=== PATIENT | female | born 2000 | race Caucasian/White ===

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

== ENCOUNTER 2020-04-30 20:42 | Observation (INO) | payer BC, OTHER ==
[2020-04-30] MEDS ORDERED: diphenhydrAMINE 50 MG/ML 1 ML VIAL IVP STA (21:19)
[2020-04-30] MEDS ORDERED: SODIUM CHLORIDE 0.9% 1,000 ML IV STA ×2 (21:19)
[2020-04-30] MEDS ORDERED: methylPREDNISolone SOD SUCCI 125 MG/2 ML VIAL IV STA (21:19)
[2020-04-30] MEDS ORDERED: FAMOTIDINE 20 MG/2 ML VIAL IV STA (21:25)
[2020-04-30] MEDS ORDERED: KETOROLAC 30 MG/ML 1 ML VIAL IVP STA (21:25)
[2020-04-30 21:39] LABS: Basophils % (A) 0 %; Eosinophils # (A) 0.5 k/uL (0-0.7); Eosinophils % (A) 3 %; HCT 43.9 % (34.0-46.0); HGB 15.1 gm/dL (11.4-16.0); Lymphocytes # (A) 4.9 k/uL (1.0-4.8); Lymphocytes % (A) 23 %; MCH 28.3 pg (25.0-35.0); MCHC 34.5 g/dL (31.0-37.0); MCV 82.1 fL (80.0-100.0); Mean Platelet Volume 6.4; Monocytes # (A) 1.3 k/uL (0-1.0); Monocytes % (A) 6 %; Neutrophils # (A) 13.8 k/uL (1.3-7.7); Neutrophils % (A) 66 %; Platelet Count 383 k/uL (150-450); RBC 5.35 m/uL (3.80-5.40); RDW 12.3 % (11.5-15.5); WBC 20.8 k/uL (4.0-11.0)
[2020-04-30 21:51] LABS: African American GFR (CKD) >90 (>60 ml/min/1.73 sqM); Anion Gap 11 mmol/L; Blood Urea Nitrogen 12 mg/dL (7-17); Calcium 9.8 mg/dL (8.4-10.2); Carbon Dioxide 22 mmol/L (22-30); Chloride 102 mmol/L (98-107); Glucose 101 mg/dL (74-99); Non-African American GFR(CKD) >90 (>60 ml/min/1.73 sqM); Potassium 3.8 mmol/L (3.5-5.1); Sodium 135 mmol/L (137-145)
[2020-04-30] MEDS ORDERED: ONDANSETRON 4 MG/2 ML VIAL IVP STA (21:51)
[2020-04-30] MEDS ORDERED: SODIUM CHLORIDE 0.9% 1,000 ML IV ONE (21:53)
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
[2020-04-30] MEDS ORDERED: ACETAMINOPHEN TAB 325 MG TAB PO PRN (22:55)
[2020-04-30] MEDS ORDERED: NALOXONE 0.4 MG/ML 1 ML VIAL IV PRN (22:55)
[2020-04-30] MEDS ORDERED: IBUPROFEN 400 MG TAB PO PRN (22:55)
[2020-04-30] MEDS ORDERED: ONDANSETRON 4 MG/2 ML VIAL IVP PRN (22:55)
[2020-04-30] MEDS ORDERED: methylPREDNISolone SOD SUCCI 125 MG/2 ML VIAL IV SCH (23:00)
[2020-04-30] MEDS ORDERED: diphenhydrAMINE 50 MG/ML 1 ML VIAL IVP SCH (23:00)
[2020-05-01 02:49] LABS: Appearance,Urine Turbid (Clear); Bilirubin,Urine Negative (Negative); Blood,Urine Small (Negative); Color,Urine Yellow; Glucose,Urine (UA) Negative (Negative); Ketones,Urine Negative (Negative); Leukocyte Esterase,Urine Negative (Negative); Mucus,Urine Occasional /hpf; Nitrite,Urine Negative (Negative); PH, Urine 5.5 (5.0-8.0); Protein,Urine Negative (Negative); RBC,Urine 1 /hpf (0-5); Specific Gravity,Urine 1.024 (1.001-1.035); Squamous Epithelial Cell,Urine 2 /hpf (0-4); Urobilinogen,Urine <2.0 mg/dL (<2.0); WBC,Urine 4 /hpf (0-5)
[2020-05-01] MEDS: methylPREDNISolone SOD SUCCI 125 MG/2 ML VIAL IV SCH ×4 (04:29→21:03)
[2020-05-01] MEDS: diphenhydrAMINE 50 MG/ML 1 ML VIAL IVP SCH ×4 (04:30→21:03)
[2020-05-01 08:01] LABS: Basophils % (A) 0 %; Eosinophils # (A) 0.1 k/uL (0-0.7); Eosinophils % (A) 1 %; HCT 40.7 % (34.0-46.0); HGB 13.2 gm/dL (11.4-16.0); Lymphocytes # (A) 1.9 k/uL (1.0-4.8); Lymphocytes % (A) 15 %; MCH 27.5 pg (25.0-35.0); MCHC 32.5 g/dL (31.0-37.0); MCV 84.4 fL (80.0-100.0); Mean Platelet Volume 7.6; Monocytes # (A) 0.3 k/uL (0-1.0); Monocytes % (A) 2 %; Neutrophils # (A) 10.2 k/uL (1.3-7.7); Neutrophils % (A) 81 %; Platelet Count 318 k/uL (150-450); RBC 4.82 m/uL (3.80-5.40); RDW 12.6 % (11.5-15.5); WBC 12.5 k/uL (4.0-11.0)
[2020-05-01 08:03] LABS: African American GFR (CKD) >90 (>60 ml/min/1.73 sqM); Anion Gap 7 mmol/L; Blood Urea Nitrogen 11 mg/dL (7-17); Calcium 8.9 mg/dL (8.4-10.2); Carbon Dioxide 20 mmol/L (22-30); Chloride 110 mmol/L (98-107); Glucose 191 mg/dL (74-99); Non-African American GFR(CKD) >90 (>60 ml/min/1.73 sqM); Potassium 4.5 mmol/L (3.5-5.1); Sodium 137 mmol/L (137-145)
[2020-05-01] MEDS: KETOROLAC 30 MG/ML 1 ML VIAL IVP PRN (08:43)
[2020-05-01] MEDS ORDERED: PANTOPRAZOLE 40 MG/10 ML VIAL IV SCH (09:00)
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
[2020-05-01] MEDS: lamoTRIgine 25 MG TAB PO SCH ×2 (15:30→21:03)
[2020-05-01] MEDS: traZODone HCL 50 MG TAB PO SCH (21:03)
--- NOTE | 2020-05-02 00:35 | P.HPIM ---
History of Present Illness H&P Date: 05/01/20 Chief Complaint: Allergic reaction Patient is a 20-year-old female with known history of asthma, ADD/ADHD and currently everyday smoker and also vapes presents to ER with complaints of severe scalp swelling, irritation and redness after dying her hair. Patient states that she had a reaction to [place] which she is using for the second time. Patient states that the reaction was worse than previous. Patient is also having significant of the forehead face and eyes and scalp present. Of the forehead and face and ice as well. Patient is also outside in the hot weather with his son and has sunburn over her back from yesterday. Patient was seen at PCPs office and topical cream was given. Patient's symptoms are not improving which made her come to ER. Patient was also having suicidal ideations and psychiatry was consulted. Patient is being continued on bedside sitter. Laboratory data showed WBC 20.8, hemoglobin 15.1 and platelets 383 Sodium 135, potassium 3.8, BUN 12 and creatinine 0.66 UA negative for infection Review of Systems Constitutional: Patient denies any fever or chills . No generalized weakness or weight loss. Abdomen: Patient denied nausea vomiting and diarrhea and abdominal pain. Cardiovascular: Patient denies any chest pain or short of breath no palpitations. Respiratory: patient denied any cough is from production. No shortness of breath Neurologic: Patient denied any numbness or tingling headache. Musculoskeletal: Patient denies any complaints of joint swelling or deformity. Skin: Allergic reaction. Swelling of the scalp and face. Psychiatric: Negative Endocrine: No heat or cold intolerance. No recent weight gain. Genitourinary: No dysuria or hematuria. All other 14 point ROS negative except the above Past Medical History Past Medical History: Asthma Additional Past Medical History / Comment(s): ADHD History of Any Multi-Drug Resistant Organisms: None Reported Past Surgical History: No Surgical Hx Reported Past Anesthesia/Blood Transfusion Reactions: No Reported Reaction Additional Past Anesthesia/Blood Transfusion Reaction / Comment(s): patient has never had a blood infusion or anesthesia. Past Psychological History: ADD/ADHD Smoking Status: Current every day smoker Past Alcohol Use History: None Reported Additional Past Alcohol Use History / Comment(s): smokes a pack of cigarettes a day and vapes. Past Drug Use History: None Reported - Past Family History Mother Family Medical History: Unable to Obtain Father Family Medical History: Unable to Obtain Medications and Allergies Home Medications Medication Instructions Recorded Confirmed Type predniSONE See Taper PO DIRECTED 05/01/20 05/01/20 History Allergies Allergy/AdvReac Type Severity Reaction Status Date / Time pneumococcal vaccine Allergy Anaphylaxis Verified 04/30/20 22:38 clobetasol AdvReac Solution Verified 04/30/20 22:38 burned patients scalp Physical Exam Vitals: Vital Signs Temp Pulse Pulse Resp BP BP Pulse Ox 05/01/20 07:00 98.2 F 82 18 143/80 96 05/01/20 03:53 16 04/30/20 23:54 98.2 F 87 18 126/71 96 04/30/20 23:06 100 04/30/20 21:44 111 H 16 125/73 100 04/30/20 20:46 99.6 F 119 H 22 135/65 99 Intake and Output 04/30/20 05/01/20 05/01/20 22:59 06:59 14:59 Other: # Voids 1 Weight 90.718 kg 94.2 kg PHYSICAL EXAMINATION: Patient is lying in the bed comfortably, no acute distress, awake alert and oriented.. HEENT: Normocephalic. Neck is supple. Pupils reactive. Nostrils clear. Oral cavity is moist. Ears reveal no drainage. Neck reveals no JVD, carotid bruits, or thyromegaly. CHEST EXAMINATION: Trachea is central. Symmetrical expansion. Lung correia clear to auscultation and percussion. CARDIAC: Normal S1, S2 with no gallops. No murmurs ABDOMEN: Soft. Bowel sounds normal. No organomegaly. No abdominal bruits. Extremities: reveal no edema. No clubbing or cyanosis Neurologically awake, alert, oriented x3 with well-coordinated movements. No focal deficits noted Skin:Patient does have swelling of the forehead, scalp region and also cheeks. Minimal redness. Nontender. Psychiatric: Coperative. Nonsuicidal Musculoskeletal: No joint swelling or deformity. Normal range of motion. Results CBC & Chem 7: 05/01/20 07:15 05/01/20 07:15 Labs: Abnormal Lab Results - Last 24 Hours (Table) 04/30/20 04/30/20 05/01/20 Range/Units 21:20 21:20 02:00 WBC 20.8 H (4.0-11.0) k/uL Neutrophils # 13.8 H (1.3-7.7) k/uL Lymphocytes # 4.9 H (1.0-4.8) k/uL Monocytes # 1.3 H (0-1.0) k/uL Sodium 135 L (137-145) mmol/L Chloride (98-107) mmol/L Carbon Dioxide (22-30) mmol/L Glucose 101 H (74-99) mg/dL Urine Appearance Turbid H (Clear) Urine Blood Small H (Negative) Urine Mucus Occasional H (None) /hpf 05/01/20 05/01/20 Range/Units 07:15 07:15 WBC 12.5 H (4.0-11.0) k/uL Neutrophils # 10.2 H (1.3-7.7) k/uL Lymphocytes # (1.0-4.8) k/uL Monocytes # (0-1.0) k/uL Sodium (137-145) mmol/L Chloride 110 H (98-107) mmol/L Carbon Dioxide 20 L (22-30) mmol/L Glucose 191 H (74-99) mg/dL Urine Appearance (Clear) Urine Blood (Negative) Urine Mucus (None) /hpf Thrombosis Risk Factor Assmnt - DVT/VTE Prophylaxis DVT/VTE Prophylaxis: Pharmacologic Prophylaxis ordered - Choose All That Apply Any of the Below Risk Factors Present?: Yes Each Factor Represents 1 point: Obesity (BMI >25) Other Risk Factors: No Other congenital or acquired thrombophilia - If yes, enter type in comment: No Thrombosis Risk Factor Assessment Total Risk Factor Score: 1 Thrombosis Risk Factor Assessment Level: Low Risk Assessment and Plan Assessment: Acute allergic reaction with hair dye with swelling on the scalp, forehead and face. Leukocytosis likely reactive ADD/ADHD History of asthma not in exacerbation Current everyday smoker History of vaping on a daily basis Morbid obesity with a BMI 40.6 Plan: Patient will be continued on methylprednisolone 60 mg every 6 hourly. Continue with Benadryl for itching and Pepcid continue to follow closely. Psychiatry was consulted due to suicidal ideation. Continue bedside sitter. Discussed with the patient and her family at bedside. Further recommendations based on the clinical course. Time with Patient: Greater than 30
[2020-05-02] MEDS: methylPREDNISolone SOD SUCCI 125 MG/2 ML VIAL IV SCH ×4 (04:21→21:45)
[2020-05-02] MEDS: diphenhydrAMINE 50 MG/ML 1 ML VIAL IVP SCH ×4 (04:21→21:45)
[2020-05-02] MEDS: FAMOTIDINE 20 MG TAB PO SCH ×2 (08:14→21:44)
[2020-05-02] MEDS: lamoTRIgine 25 MG TAB PO SCH ×2 (08:15→21:44)
--- NOTE | 2020-05-02 13:08 | P.PN ---
Progress Note - Text Progress Note Date: 05/02/20 Interval History: Patient was seen today for psychiatric follow-up on the medical floors for willi mckeon's mood and suicidal thoughts. Patient was started on Lamictal and trazodone yesterday. Patient continued to have a one-to-one sitter at her side in her room. Patient just finished finish brushing her teeth today and was appearing to be less edematous in her face and appeared to have a brighter affect. She claims that she is feeling better since yesterday and claims that she feels her mood has been improving. She denies any depression today and claims that she feels less angry and irritable. She denied any rashes or side effects from medications. She states that she was able to sleep well last night. She claims that she has a fair appetite. At this time patient denies any suicidal or homical ideations, intent or plan. Patient denies any auditory, visual hallucinations and denies any paranoia or delusions. Mental Status Exam: General Appearance: Patient appears to be stated age is alert, directable and is more cooperative. Patient appears to have fair hygiene and grooming wearing hospital gown with fair eye contact. Behavior: Patient is sitting in bed without any agitated behavior. Speech: Patient's speech is fluent and nonpressured. Mood/Affect: Patient reports their mood is "better", affect is congruent Suicidality/Homicidality: Patient denies having any suicidal or homicidal ideation intent or plan. Perceptions: Patient denies any visual hallucinations and denies any auditory hallucinations Though content/process: There is no evidence of any delusional thought content and thought process is linear and goal-directed. More future oriented. Memory and concentration: AOX3, grossly intact for the purposes of this session. Judgment and insight: Limited, improving Assessment Mood disorder unspecified, rule out bipolar disorder Cluster B traits Nicotine dependence Plan: -At this time patient DOES NOT meet criteria for inpatient psychiatric admission. -Would recommend the following medication changes/additions: Continue with Lamictal 25 mg twice a day for mood stabilization/depression, this dose of Lamictal can be titrated up in 1-2 weeks when patient follows up with her outpatient provider. Patient denies any rash or any side effects from his medication. Continue with trazodone 50 mg daily at bedtime for insomnia/mood. -Discontinued one-to-one sitter. -Spoke about this plan with patient's mother, patient and nurse and all agree and are on board. Veneer Sander answered questions from both patient and patient's mother today at the bedside. -Patient's mother will be getting patient into [facility] for psychiatric follow-up upon discharge within 1-2 weeks. -Will sign off at this time -Please contact with any questions.
--- NOTE | 2020-05-02 15:18 | P.PN ---
Subjective Progress Note Date: 05/02/20 Principal diagnosis: Patient is a 20-year-old female with known history of asthma, ADD/ADHD and currently everyday smoker and also vapes presents to ER with complaints of severe scalp swelling, irritation and redness after dying her hair. Patient states that she had a reaction to [place] which she is using for the second time. Patient states that the reaction was worse than previous. Patient is also having significant of the forehead face and eyes and scalp present. Of the forehead and face and ice as well. Patient is also outside in the hot weather with his son and has sunburn over her back from yesterday. Patient was seen at PCPs office and topical cream was given. Patient's symptoms are not improving which made her come to ER. Patient was also having suicidal ideations and psychiatry was consulted. Patient is being continued on bedside sitter. Laboratory data showed WBC 20.8, hemoglobin 15.1 and platelets 383 Sodium 135, potassium 3.8, BUN 12 and creatinine 0.66 UA negative for infection 05/02/2020 Patient is seen and evaluated and follow-up and continues to be edematous in the face although is showing some slight improvement and is able to see out of both eyes. Patient states she continues to have difficulty in fully seeing but is slightly improved from yesterday. Patient is maintained on steroids along with toradol and Benadryl. Patient is currently eating with no difficulties in swallowing and patient denies any nausea or vomiting. Patient denies any chest pain, shortness of breath, or palpitations. Patient denies any suicidal ideati on or thoughts of wanting to harm herself or others. Patient was seen and reevaluated by psychiatry recommending continue with mood stabilizers and outpatient follow-up. 1-1 suicide sitter has been discontinued. Currently mother is at the bedside. Patient continues to have some scalp tenderness all the redness has resolved. Will continue to monitor closely. Objective - Vital Signs Vital signs: Vital Signs Temp 97.9 F 05/02/20 07:00 Pulse 87 05/02/20 07:00 Resp 16 05/02/20 07:00 BP 133/67 05/02/20 07:00 Pulse Ox 98 05/02/20 07:00 Intake & Output 05/01/20 05/02/20 05/02/20 18:59 06:59 18:59 Intake Total 100 Balance 100 Intake: Oral 100 Other: Voiding Method Toilet Toilet # Voids 3 1 - Exam Patient is sitting up in the bed comfortably, no acute distress, awake alert and oriented.. Currently eating lunch. HEENT: Normocephalic. Neck is supple. Pupils reactive. Nostrils clear. Oral cavity is moist. Ears reveal no drainage. Neck reveals no JVD, carotid bruits, or thyromegaly. CHEST EXAMINATION: Trachea is central. Symmetrical expansion. Lung correia clear to auscultation and percussion. CARDIAC: Normal S1, S2 with no gallops. No murmurs ABDOMEN: Soft. Bowel sounds normal. No organomegaly. No abdominal bruits. Extremities: reveal no edema. No clubbing or cyanosis Neurologically awake, alert, oriented x3 with well-coordinated movements. No focal deficits noted Skin:Patient does have swelling of the forehead, scalp region and also cheeks. Minimal redness. Nontender. Redness has resolved and patient continues to have some swelling of the forehead and scalp although slight improvement in patient is able to see out of both eyes Psychiatric: Cooperative. Non-suicidal Musculoskeletal: No joint swelling or deformity. Normal range of motion. - Labs CBC & Chem 7: 05/01/20 07:15 05/01/20 07:15 Assessment and Plan Assessment: Acute allergic reaction with hair dye with swelling on the scalp, forehead and face. Leukocytosis likely reactive, improving ADD/ADHD History of asthma not in exacerbation Current everyday smoker History of vaping on a daily basis Morbid obesity with a BMI 40.6 Plan: Patient will be continued on methylprednisolone 60 mg every 6 hourly. Continue with Benadryl for itching and Pepcid continue to follow closely. Psychiatry following and reevaluated the patient recommending continued outpatient follow- up with and counseling and mood stabilizers. Suicide sitter has been discontinued.. Discussed with the patient and her family at bedside. Further recommendations based on the clinical course. We will continue to monitor and observe closely overnight with anticipation of possible discharge in 24 hours.
[2020-05-02] MEDS: KETOROLAC 30 MG/ML 1 ML VIAL IVP PRN (15:20)
[2020-05-02] MEDS: traZODone HCL 50 MG TAB PO SCH (21:44)
[2020-05-03 01:31] VITALS: RESP 18
[2020-05-03] MEDS: diphenhydrAMINE 50 MG/ML 1 ML VIAL IVP SCH ×2 (04:22→08:07)
[2020-05-03] MEDS: methylPREDNISolone SOD SUCCI 125 MG/2 ML VIAL IV SCH ×2 (04:22→08:07)
[2020-05-03] MEDS: lamoTRIgine 25 MG TAB PO SCH (08:08)
[2020-05-03] MEDS: FAMOTIDINE 20 MG TAB PO SCH (08:08)
[2020-05-03 08:14] VITALS: BP 111/65; PULSE 86; TEMP 98.1
--- NOTE | 2020-05-03 12:47 | P.DS ---
Providers Date of admission: 04/30/20 22:25 Expected date of discharge: 05/03/20 Attending physician: Yusuf Buchanan Consults: 05/01/20 00:35 Consult Physician ONCE Consulting Provider: Wilmer Strange Consult Reason/Comments: suicidal thoughts. Do you want consulting provider notified?: Yes, Notify in am [facility] Course: Final diagnosis Acute allergic reaction with hair dye with swelling on the scalp, forehead and face. Leukocytosis likely reactive, improved ADD/ADHD Possible mood disorder, unspecified, rule out bipolar disorder History of asthma not in exacerbation Current everyday smoker History of vaping on a daily basis Morbid obesity with a BMI 40.6 Discharge disposition Patient is being discharged in a stable condition with guarded prognosis to home. Patient will follow-up with Dr. Thakur upon discharge. Patient also instructed to follow-up with the counseling center upon discharge. Patient will continue on prednisone taper that was prescribed prior to admission along with Benadryl and Motrin. Patient will also continue on Lamictal along with trazodone as prescribed by psychiatry. Total time taken is 35 minutes. History of present illness This is an 20-year-old female who was recently admitted with ALLERGIC reaction to hair dye with severe scalp swelling, irritation, and redness and was being closely monitored. Patient was also found to have significant for head facial and eye swelling. Patient was initiated on IV steroids along with Benadryl, Toradol, and Motrin and has improved. Erythema is resolved and patient continues to have some mild scalp and forehead swelling but has improved as well. Will continue on prednisone taper as prescribed to her by dermatology that she never started the day of admission. Patient will also continue with Benadryl and Motrin. Patient instructed to avoid hair dye and also to continue avoiding prolonged exposure to the sun as she was also out in the sun for a long period prior to being admitted. Patient instructed to wear sunscreen as well. Patient also instructed to discontinue smoking and vaping. During hospitalization patient had mentioned thoughts of suicide and was evaluated by psychiatry. She was initiated on Lamictal along with trazodone and will continue in the outpatient setting. Patient's mother has made arrangements to follow-up with counseling services in the outpatient setting. Patient currently denies any suicidal thoughts or thoughts of wanting to harm herself or others. Currently no reports of chest pain, shortness of breath, or palpitations. Patient is afebrile. No reports of nausea or vomiting and patient is tolerating diet. Guarded prognosis. On exam vital signs are stable. Temp is 98.1F, pulse is 86, respirations are 18, blood pressure is 111/65, oxygen saturation is 94-98 % on room air. Cardio S1, S2 are muffled. Respiratory shows clear to auscultation. Abdomen is soft and nontender. Nervous system shows no focal deficits. Please refer to medication reconciliation sheet for a list of medications. Patient Condition at Discharge: Stable Plan - Discharge Summary Discharge Rx Participant: Yes New Discharge Prescriptions: New diphenhydrAMINE [Benadryl] 25 mg PO TID PRN 10 Days #30 capsule PRN Reason: Allergic Reaction traZODone HCL [Desyrel] 50 mg PO HS 30 Days #30 tab lamoTRIgine [LaMICtal] 25 mg PO BID 30 Days #60 tab Ibuprofen [Motrin] 400 mg PO Q6HR PRN #30 tab PRN Reason: Mild Pain Or Fever > 100.5 Famotidine [Pepcid] 20 mg PO BID 15 Days #30 tab Continue predniSONE See Taper PO DIRECTED Discharge Medication List predniSONE See Taper PO DIRECTED 05/01/20 [History] Famotidine [Pepcid] 20 mg PO BID 15 Days #30 tab 05/03/20 [Rx] Ibuprofen [Motrin] 400 mg PO Q6HR PRN #30 tab 05/03/20 [Rx] diphenhydrAMINE [Benadryl] 25 mg PO TID PRN 10 Days #30 capsule 05/03/20 [Rx] lamoTRIgine [LaMICtal] 25 mg PO BID 30 Days #60 tab 05/03/20 [Rx] traZODone HCL [Desyrel] 50 mg PO HS 30 Days #30 tab 05/03/20 [Rx] Follow up Appointment(s)/Referral(s): Dariel Thakur MD [Primary Care Provider] - 1-2 days Activity/Diet/Wound Care/Special Instructions: Activity Limited until follow-up Continue taking prednisone taper that was given to you prior to admission Avoid hair dyes Avoid prolonged exposure to the sun and wear sunscreen Continue to avoid smoking and vaping Follow-up with counseling in the outpatient setting Continue current diet Encourage fluids and rest Discharge Disposition: HOME SELF-CARE
== END 2020-05-03 14:53 | disposition home or self-care (01) ==
LOC: EC 20:42 → 6PED 22:25 → 4SSUR 05-01 02:35
PROVIDERS: ADMIT Hospitalist; ATTEND Hospitalist
DX: T65.6X1A Toxic effect of paints and dyes, not elsewhere classified, accidental (unintentional), initial encounter (principal); L23.4 Allergic contact dermatitis due to dyes; R51 Headache; R60.0 Localized edema; D72.829 Elevated white blood cell count, unspecified; L55.9 Sunburn, unspecified; F90.9 Attention-deficit hyperactivity disorder, unspecified type; F32.9 Major depressive disorder, single episode, unspecified; J45.909 Unspecified asthma, uncomplicated; F17.210 Nicotine dependence, cigarettes, uncomplicated; F17.290 Nicotine dependence, other tobacco product, uncomplicated; Z68.41 Body mass index [BMI] 40.0-44.9, adult; E66.01 Morbid (severe) obesity due to excess calories; R45.851 Suicidal ideations; Z91.5 Personal history of self-harm; Z56.0 Unemployment, unspecified; G47.00 Insomnia, unspecified; Z88.7 Allergy status to serum and vaccine; Z88.8 Allergy status to other drugs, medicaments and biological substances; Z81.8 Family history of other mental and behavioral disorders; R11.0 Nausea; Z11.59 Encounter for screening for other viral diseases
CPT/HCPCS: 96376 ×3; 96375 ×2; 96361; 96374; 99285; 36415; 80048 ×2; 85025 ×2; 81001; 81025; G0378 ×5; U0003; J1200 ×4; J2930 ×4; J2405; J1885 ×3; C9113

== ENCOUNTER 2021-05-03 02:03 | Emergency (ER) | payer OTHER ==
[2021-05-03 02:08] VITALS: BP 135/88; PULSE 91; RESP 20; TEMP 98.8
[2021-05-03] MEDS ORDERED: methylPREDNISolone SOD SUCCI 125 MG/2 ML VIAL IM ONE (02:31)
[2021-05-03] MEDS ORDERED: diphenhydrAMINE 50 MG/ML 1 ML VIAL IM STA (02:31)
[2021-05-03] MEDS ORDERED: CEPHALEXIN 500MG STARTER PACK 4 CAP BTL PO STA (02:31)
[2021-05-03] MEDS ORDERED: FAMOTIDINE 20 MG TAB PO STA (02:31)
--- NOTE | 2021-05-03 02:37 | ED ---
General Adult HPI - General Chief complaint: Skin/Abscess/Foreign Body Stated complaint: Scalp irritation Time Seen by Provider: 05/03/21 02:14 Source: patient, family Mode of arrival: ambulatory Limitations: no limitations - History of Present Illness Initial comments: 21 year-old female patient presents to the emergency department for evaluation of rash to the scalp. Patient had her hair dyed at the salon yesterday. States she has known sensitivity to hair dye. States that she started having itching and irritation last night. Symptoms worsened throughout the day. States that she feels like her face is swelling. Denies taking any medication for her symptoms. Denies any wheezing. States she feels like she is having some mild shortness of breath. Denies rash to any other areas of her body. Denies fever or chills. Eating and drinking without difficulty. Denies chance of . - Related Data Home Medications Medication Instructions Recorded Confirmed predniSONE See Taper PO DIRECTED 05/01/20 05/01/20 Previous Rx's Medication Instructions Recorded Famotidine [Pepcid] 20 mg PO BID 15 Days #30 tab 05/03/20 Ibuprofen [Motrin] 400 mg PO Q6HR PRN #30 tab 05/03/20 diphenhydrAMINE [Benadryl] 25 mg PO TID PRN 10 Days #30 05/03/20 capsule lamoTRIgine [LaMICtal] 25 mg PO BID 30 Days #60 tab 05/03/20 traZODone HCL [Desyrel] 50 mg PO HS 30 Days #30 tab 05/03/20 Cephalexin [Keflex] 500 mg PO Q6H #28 cap 05/03/21 Famotidine [Pepcid] 20 mg PO DAILY #5 tablet 05/03/21 hydrOXYzine HCL [Atarax] 25 mg PO QID PRN #20 tab 05/03/21 predniSONE 50 mg PO DAILY #5 tablet 05/03/21 Allergies Allergy/AdvReac Type Severity Reaction Status Date / Time pneumococcal vaccine Allergy Anaphylaxis Verified 05/03/21 02:09 clobetasol AdvReac Solution Verified 05/03/21 02:09 burned patients scalp Review of Systems ROS Statement: Those systems with pertinent positive or pertinent negative responses have been documented in the HPI. ROS Other: All systems not noted in ROS Statement are negative. Past Medical History Past Medical History: Asthma Additional Past Medical History / Comment(s): ADHD History of Any Multi-Drug Resistant Organisms: None Reported Past Surgical History: No Surgical Hx Reported Past Anesthesia/Blood Transfusion Reactions: No Reported Reaction Additional Past Anesthesia/Blood Transfusion Reaction / Comment(s): patient has never had a blood infusion or anesthesia. Past Psychological History: ADD/ADHD, Anxiety Smoking Status: Current every day smoker Past Alcohol Use History: None Reported Past Drug Use History: None Reported - Past Family History Mother Family Medical History: Unable to Obtain Father Family Medical History: Unable to Obtain General Exam Limitations: no limitations General appearance: alert, in no apparent distress, other (Physical well- developed, well-nourished adult female patient in no acute distress. Vital signs upon presentation are temperature 98.8F, pulse 91, respirations 20, blood pressure 135/88, pulse ox 97% on room air.) Head exam: Present: other (There is erythema and swelling to the entirety of the scalp. Some weeping areas.) Eye exam: Present: normal appearance, PERRL, EOMI. Absent: scleral icterus, conjunctival injection, periorbital swelling ENT exam: Present: normal exam, normal oropharynx, mucous membranes moist Respiratory exam: Present: normal lung sounds bilaterally. Absent: respiratory distress, wheezes, rales, rhonchi, stridor Cardiovascular Exam: Present: regular rate, normal rhythm, normal heart sounds. Absent: systolic murmur, diastolic murmur, rubs, gallop, clicks Neurological exam: Present: alert, oriented X3, CN II-XII intact Psychiatric exam: Present: normal affect, normal mood Skin exam: Present: warm, dry, intact, normal color. Absent: rash Course Vital Signs 05/03/21 02:03 Temperature 98.8 F Pulse Rate 91 Respiratory 20 Rate Blood Pressure 135/88 O2 Sat by Pulse 97 Oximetry Medical Decision Making - Medical Decision Making 21-year-old female patient presents for evaluation of rash to her scalp. Physical examination did reveal erythema and swelling to the scalp. Some weeping areas small vesicles consistent with contact dermatitis. Patient will be started on steroids, Benadryl, and Pepcid. She is going be started on Keflex for prophylaxis. She'll be discharged home with prescription for prednisone, Atarax, keflex, and Pepcid. She is instructed to follow-up with her primary care physician for recheck in 1-2 days. Return parameters were discussed in detail. She verbalizes understanding and agrees with this plan. Case discussed with my attending Dr. Eaton. Disposition Clinical Impression: Contact dermatitis Disposition: HOME SELF-CARE Condition: Good Instructions (If sedation given, give patient instructions): Contact Dermatitis (ED) Additional Instructions: Take medication as directed. Avoid hot water over the area. Follow up with your primary care physician for recheck in 1-2 days. Return for any new, worsening, or concerning symptoms. Prescriptions: hydrOXYzine HCL [Atarax] 25 mg PO QID PRN #20 tab PRN Reason: Itching Cephalexin [Keflex] 500 mg PO Q6H #28 cap Famotidine [Pepcid] 20 mg PO DAILY #5 tablet predniSONE 50 mg PO DAILY #5 tablet Is patient prescribed a controlled substance at d/c from ED?: No Referrals: Dariel Thakur MD [Primary Care Provider] - 1-2 days Time of Disposition: 02:35
== END 2021-05-03 03:00 | disposition home or self-care (01) ==
LOC: EC 02:03
DX: L25.9 Unspecified contact dermatitis, unspecified cause (principal); F17.200 Nicotine dependence, unspecified, uncomplicated; J45.909 Unspecified asthma, uncomplicated; Z88.7 Allergy status to serum and vaccine; Z88.8 Allergy status to other drugs, medicaments and biological substances
CPT/HCPCS: 99282; 96372; J1200; J2930

== ENCOUNTER 2021-05-04 16:11 | Emergency (ER) | payer OTHER ==
[2021-05-04 16:31] VITALS: BP 131/79; PULSE 77; RESP 16; TEMP 98
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
== END 2021-05-04 16:52 | disposition home or self-care (01) ==
LOC: EC 16:11
DX: L25.9 Unspecified contact dermatitis, unspecified cause (principal); J45.909 Unspecified asthma, uncomplicated; F17.200 Nicotine dependence, unspecified, uncomplicated; Z88.7 Allergy status to serum and vaccine; Z88.8 Allergy status to other drugs, medicaments and biological substances; Z79.51 Long term (current) use of inhaled steroids
CPT/HCPCS: 99283

== ENCOUNTER 2023-01-14 00:50 | Emergency (ER) | payer OTHER ==
[2023-01-14 01:02] VITALS: BP 132/89; PULSE 75; RESP 12; TEMP 98.7
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
[2023-01-14 02:07] LABS: Appearance,Urine Clear (Clear); Bilirubin,Urine Negative (Negative); Blood,Urine Negative (Negative); Color,Urine Yellow; Glucose,Urine (UA) Negative (Negative); Ketones,Urine Negative (Negative); Leukocyte Esterase,Urine Negative (Negative); Nitrite,Urine Negative (Negative); Protein,Urine Negative (Negative); Specific Gravity,Urine 1.021 (1.001-1.035); Urobilinogen,Urine <2.0 mg/dL (<2.0)
[2023-01-14] MEDS ORDERED: KETOROLAC 15 MG/ML 1 ML VIAL IM STA (02:54)
--- NOTE | 2023-01-14 03:22 | XR ---
EXAM: XR Abdomen, 1 View CLINICAL HISTORY: ITS.REASON XR Reason: ab pain TECHNIQUE: Frontal supine view of the abdomen/pelvis. COMPARISON: No relevant prior studies available. FINDINGS: Gastrointestinal tract: Unremarkable. No dilation. Bones/joints: Unremarkable. IMPRESSION: Normal abdominal x-ray.
== END 2023-01-14 03:40 | disposition home or self-care (01) ==
LOC: EC 00:50
DX: R10.9 Unspecified abdominal pain (principal); J45.909 Unspecified asthma, uncomplicated; F41.9 Anxiety disorder, unspecified; F17.290 Nicotine dependence, other tobacco product, uncomplicated; Z88.7 Allergy status to serum and vaccine; Z88.8 Allergy status to other drugs, medicaments and biological substances; Z79.52 Long term (current) use of systemic steroids
CPT/HCPCS: 81003; 81025; 74018; 99284; 96372; J1885

== ENCOUNTER 2023-09-18 19:09 | Emergency (ER) | payer OTHER ==
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
[2023-09-18 20:15] LABS: Amphetamine Screen,Urine Not Detected (NotDetected); Barbiturate Screen,Urine Not Detected (NotDetected); Benzodiazepines Screen,Urine Not Detected (NotDetected); Cocaine Screen,Urine Not Detected (NotDetected); Methadone Screen, Urine Not Detected (NotDetected); Opiate Screen,Urine Not Detected (NotDetected); Oxycodone Screen, Urine Not Detected (NotDetected); Phencyclidine Screen,Urine Not Detected (NotDetected); Tricyclic Antidepressant,Urine Not Detected (NotDetected); Urn Cannabinoid Scrn Not Detected (NotDetected)
[2023-09-18 21:57] LABS: HGB 13.5 gm/dL (11.4-16.0); MCH 28.8 pg (25.0-35.0); MCHC 34.7 g/dL (31.0-37.0); MCV 83.2 fL (80.0-100.0); Mean Platelet Volume 6.7; Platelet Count 320 k/uL (150-450); RBC 4.69 m/uL (3.80-5.40); RDW 12.4 % (11.5-15.5)
[2023-09-18 22:05] LABS: ALT 67 U/L (4-34); AST 42 U/L (14-36); African American GFR (CKD) >90 (>60 ml/min/1.73 sqM); Alkaline Phosphatase 52 U/L (38-126); Anion Gap 15 mmol/L; Blood Urea Nitrogen 20 mg/dL (7-17); Calcium 10.2 mg/dL (8.4-10.2); Carbon Dioxide 22 mmol/L (22-30); Chloride 103 mmol/L (98-107); Glucose 88 mg/dL (74-99); Non-African American GFR(CKD) >90 (>60 ml/min/1.73 sqM); Potassium 4.4 mmol/L (3.5-5.1); Sodium 140 mmol/L (137-145); Total Bilirubin 0.5 mg/dL (0.2-1.3); Total Protein 8.7 g/dL (6.3-8.2)
[2023-09-19] MEDS ORDERED: DOCUSATE 100 MG CAP PO STA (01:16)
[2023-09-19] MEDS ORDERED: DICYCLOMINE 10 MG CAP PO STA (01:20)
[2023-09-19] MEDS ORDERED: ONDANSETRON ODT 4 MG TAB PO STA (03:03)
[2023-09-19] MEDS ORDERED: LOPERAMIDE 2 MG CAP PO STA (03:03)
[2023-09-19 08:59] VITALS: BP 123/77; PULSE 93; RESP 18; TEMP 99.9
== END 2023-09-19 10:05 ==
LOC: EC 19:09
DX: R45.851 Suicidal ideations (principal); J45.909 Unspecified asthma, uncomplicated; F17.290 Nicotine dependence, other tobacco product, uncomplicated; Z88.7 Allergy status to serum and vaccine; Z88.8 Allergy status to other drugs, medicaments and biological substances; Z86.59 Personal history of other mental and behavioral disorders; Z20.822 Contact with and (suspected) exposure to COVID-19
CPT/HCPCS: 36415; 80053; 80306; 81025; 85027; 87635; 99285